=== PATIENT | female | born 1965 | race Hispanic/Latino ===

== ENCOUNTER 2017-12-18 07:00 | Day surgery (SDC) | payer OTHER ==
[2012-07-24 02:02] VITALS: BMI 28.3
--- NOTE | 2017-12-18 07:54 | CP.SDSHP ---
Same Day Surgery H & P - History Proposed Procedure: EGD. Colonoscopy Pre-Op Diagnosis: heartburn. epigastric pain. 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 epigastric pain. screening for colon cancer Pt. Evaluated Today:Candidate for Anesthesia & Procedure: Yes - Date & Time Date: 12/18/17 Time: 07:53 Short Stay Discharge - Short Stay Discharge Admitting Diagnosis/Reason for Visit: ENCOUNTER FOR SCREENING Disposition: HOME/ ROUTINE
[2017-12-18] MEDS ORDERED: Pantoprazole 40 mg EC Tab PO ONE ×2 (08:15→10:30)
[2017-12-18] MEDS ORDERED: Propofol 10 mg/ml Inj (20 ML) ONE ×3 (09:25→09:46)
[2017-12-18 10:06] VITALS: TEMP 98
[2017-12-18 10:49] VITALS: BP 127/81; PULSE 74; RESP 12; O2SAT 98
== END 2017-12-18 10:47 | disposition home or self-care (01) ==
LOC: C.ENDO 07:00
PROVIDERS: ATTEND Internal Medicine Gastroenterology
DX: Z12.11 Encounter for screening for malignant neoplasm of colon (principal); K21.0 Gastro-esophageal reflux disease with esophagitis; K64.1 Second degree hemorrhoids; I10 Essential (primary) hypertension; K29.60 Other gastritis without bleeding
CPT/HCPCS: 36415; 43239; 45378; 84702; 84703; 88305; 88312; 88313; 88342; J2001; J2704